=== PATIENT | male | born 1975 | race Caucasian/White ===

== ENCOUNTER 2025-01-02 06:26 | Day surgery (SDC) | payer BC, SELFPAY | END 2025-01-02 11:39 | disposition home or self-care (01) | LOC: GI 06:26 | PROVIDERS: ATTENDING PHYSICIAN Internal Medicine | DX: Z12.11 Encounter for screening for malignant neoplasm of colon (principal); K62.89 Other specified diseases of anus and rectum; K63.5 Polyp of colon; K62.1 Rectal polyp | CPT/HCPCS: 45380; 88305 ==

== ENCOUNTER 2025-07-17 01:13 | Inpatient (IN) | payer BC, SELFPAY ==
[2025-07-16 10:13] VITALS: BP 137/87
--- NOTE | 2025-07-16 10:31 | ED.GENMED ---
History of Present Illness
General
Chief Complaint: Dental Problem
Time Seen by Provider: 07/16/25 10:17
History of Present Illness
History of Present Illness:
Patient is a 49-year-old man is otherwise healthy presenting to the emergency department concerns for a dental infection. Patient states that he had his right upper and right lower wisdom teeth removed. He developed pain and swelling and was
started on Bactrim. He did finish 10 days of Bactrim today. Since then he has developed worsening swelling to the submandibular area as well as difficulty opening his jaw. No fevers. He went and saw his oral surgeon who told him to come to the
emergency department for further evaluation. I did discuss with patient oral surgeon who recommended CT scan blood work and likely IV antibiotics and possible I&D by OMFS here. Patient states he has been able to tolerate secretions. He has been
able to tolerate p.o. as well. No vision changes. No hearing changes. No tongue involvement.
Phy Exam
Physical Exam
Physical Exam:
GENERAL: in no acute distress
HEENT: normocephalic, extraocular movements intact, moist oral mucosa, trismus, swelling to the right submandibular region with associated erythema and tenderness of the right side of the jaw to the mid ear, no tongue elevation, protecting airway
NECK: normal inspection
RESPIRATORY: no respiratory distress, clear to auscultation bilaterally
CARDIOVASCULAR: regular rate and rhythm
ABDOMEN/: soft, non-distended, non-tender to palpation, no rebound or guarding
EXTREMITIES: non-tender, no edema/swelling
NEUROLOGIC: awake and alert, moves all extremities
SKIN: warm
Course
Orders/Labs/Results
Orders:
Orders
07/16/25 10:17
CT Neck With Iv Contrast Urgent
Comment:
Reason For Exam: dental infection, recent extraction
07/16/25 10:29
Ketorolac [Toradol] 15 mg IV NOW STA
07/16/25 10:42
Basic Metabolic Panel Urgent
Complete Blood Count/With Diff Urgent
07/16/25 13:58
Acetaminophen 1000MG/100Ml [Ofirmev] 1,000 mg in 100 ml IV ONCE
Acetaminophen IV Indication:: ED Narcotic Naive Pt-ONCE
07/16/25 14:05
Ampicillin/Sulbactam 3 G [Unasyn] 3 gm 0.9% Sodium Chloride 100 ml [Nss] 100 ml IV NOW
07/16/25 19:50
Ketorolac [Toradol] 15 mg IV NOW STA
07/17/25 00:24
Admit/Transfer Patient As Directed
Co-Sign Provider:
Level of Care: Inpatient admission
Assign to:: Medical/Surgical
Physician / Group: Christie
Diagnosis: dental abscess
Reason for Hospitalization: dental abscess
Expected length of stay greater than two midnights?: Yes
ELOS- Estimated Length of Stay in days: 2
I certify the patient meets the requirements for IP care: Yes
PRN Pain Medication Management As Directed
May give lesser potent ordered pain med per pt: Yes
preference::
Protocol:: Medication orders for pain may be administered in a
manner that supports deferring to patient preference
when the pt is:
- Requesting an ordered lesser potent pain medication.
Least to most potent pain medications are defined
as: acetaminophen < NSAID < tramadol < opioids
(morphine, oxycodone, hydromorphone).
- Requesting a lesser dose of the same medication IF
ORDERED.
- Requesting a less intrusive route of administration
if both routes are prescribed by the provider (PO <
IV).
07/17/25 00:25
Code Status As Directed
Resuscitation Status: Full Code
07/17/25 00:31
Oxycodone/Acetaminophen [Percocet 5/325] 1 tablet PO NOW STA
07/17/25 02:39
Acetaminophen [Tylenol] 650 mg PO Q4HPRN PRN
Bisacodyl [Dulcolax] 10 mg RECTAL [id number] PRN
Docusate W/Senna [Senokot-S] 1 tablet PO BIDPRN PRN
HYDROmorphone [Dilaudid] 0.5 mg IV Q4HPRN PRN
Ketorolac [Toradol] 15 mg IV Q6HPRN PRN
Polyethylene Glycol Powder [Miralax] 17 grams PO DAILYPRN PRN
07/17/25 02:39
Activity As Directed
Activity Level: With Assistance
Pneumatic Compression Sleeves As Directed
Type: Knee high
Vital Signs As Directed
Frequency: Per unit guidelines
DX Deep Vein Thrombosis Video Routine
07/17/25 Breakfast
Clear Liquid
At Your Request: Full Participation
07/17/25 07:09
Basic Metabolic Panel IN AM
Complete Blood Count/No Diff IN AM
Abnormal Lab Results
07/16/25
10:42
RBC 4.49 L 10^6/uL
(4.70-6.10)
Hct 38.8 L %
(39.0-52.0)
Absolute Monos (auto) 0.7 H 10^3/uL
(0.1-0.6)
Lymphocytes % 16.9 L %
(20.5-51.1)
Monocytes % 10.3 H %
(1.7-9.3)
Glucose 102 H mg/dl
(70-99)
07/16/25 10:42
07/16/25 10:42
Vital Signs
Initial and Last Documented VS:
Initial Vital Signs
Temp Pulse Resp BP Pulse Ox
98.3 F 92 16 137/87 98
07/16/25 10:13 07/16/25 10:13 07/16/25 10:13 07/16/25 10:13 07/16/25 10:13
Last Documented Vital Signs
Temp Pulse Resp BP Pulse Ox
99.1 F 75 16 117/73 100
07/17/25 07:25 07/17/25 07:25 07/17/25 07:25 07/17/25 07:25 07/17/25 07:25
MDM/Problems Addressed
Differential Diagnosis Includes:
Patient is a 49-year-old male with recent wisdom tooth extraction presenting to the emergency department the request of his facial surgeon for concern for sub mandibular infection. Vitals unremarkable exam does show significant swelling and an area
of localized swelling to the right submandibular region concerning for an abscess. Difficult to assess intraoral given trismus. Will check blood work CT scan. Will give Toradol.
*Pulse Oximetry
SaO2: 98
Oxygen Mode of Delivery: Room air
Patient hypoxic: no
*Critical Care Note
Total Time (30-74mins, 75-104mins- exclusive of procedures): Not Applicable
Update Note
Update Note:
Blood work reassuring. CT scan does show large abscess. I did discuss with OMFS here who recommended transfer to [facility] after they reviewed the images independently.
After discussion with pharmacy will start patient on IV Unasyn. He does have a rash to penicillin so the allergy was more than 20 years ago. After shared decision making patient is amenable given the new guidelines.
Patient accepted at [facility] with accepting Dr. Gonzales
Patient signed out to oncoming attending pending transfer to [facility]
ED Attending Note
-
Portions of this chart may have been created with voice recognition software.� Occasional wrong word or��sound alike� substitutions may have occurred due to the inherent limitations of voice recognition software.
Discharge Plan
Departure
Patient Disposition: Acute Care Hospital
Date of Disposition: 07/16/25
Time of Disposition: 14:19
Discharge Problem:
Abscess
Hospital Transfer
Other hospital: [facility]
I certify that the patient requires transfer: Yes
Discussed case with accepting physician: Dr Gonzales
Reason for transfer: specialties available
Interventions
Interventions:
*Risk Screen - Suicide Last Done: 07/17/25 02:31
*General Assessment Last Done: 07/16/25 21:47
*Neglect/Abuse Screening Last Done: 07/16/25 14:35
*ED- Fall Risk Assessment Last Done: 07/16/25 14:35
*ED COVID-19 Vaccine History Last Done: 07/17/25 02:31
*ED Influenza Vaccine History Last Done: 07/16/25 14:35
*Nursing Disposition Last Done: 07/17/25 02:05
Discharge Date and Time
Discharge Date/Time: 07/17/25 02:15
[2025-07-16 10:52] LABS: Hematocrit 38.8 % (39.0-52.0); Hemoglobin 13.4 g/dL (13.0-18.0); Mean Corp Hgb Conc. 34.5 g/dL (33.0-37.0); Mean Corpuscular Volume 86.4 fL (80.0-94.0); Nucleated Red Blood Cells % 0 % (-); Platelet Count 251 10^3/uL (130-400); Red Cell Dist. Width 11.9 % (11.5-14.5)
[2025-07-16] MEDS: TORADOL 15 MG IV ×2 (10:57→20:19)
[2025-07-16 11:06] LABS: Blood Urea Nitrogen 10 mg/dl (9-20); Calcium 9.5 mg/dl (8.4-10.2); Carbon Dioxide 28 mmol/L (22-30); Chloride 103 mmol/L (98-107); Glucose 102 mg/dl (70-99); Potassium 4.4 mmol/L (3.5-5.1); Sodium 135 mmol/L (135-145); eGFR > 60.00
[2025-07-16] MEDS: OFIRMEV 100 IV (14:33)
[2025-07-16 14:34] VITALS: BMI 27.5
[2025-07-16] MEDS: UNASYN IV (15:04)
[2025-07-16 15:09] VITALS: BP 131/89
[2025-07-16 16:00] VITALS: BP 99/58
[2025-07-16 17:00] VITALS: BP 109/83
[2025-07-16 18:00] VITALS: BP 120/81
[2025-07-16 19:48] VITALS: BP 127/70
--- NOTE | 2025-07-16 23:42 | ED.ADDNOTE ---
ED Addendum
ED Addendum
ED Addendum Note:
Care of patient was transition pending transfer to [facility]. Patient has dental abscess requiring IV antibiotics possible I&D. [facility] indicating that there is no bed availability currently. Will admit for antibiotics and pain control pending transfer
--- NOTE | 2025-07-17 00:16 | HPS.HSE ---
Family Physician
-
Family Physician: Ford Gutierrez
Chief Complaint
-
Oral pain
History of Present Illness
This is a 49-year-old man w/o significant past medical history presenting to the emergency department concerns for a dental infection.
He is recently status post right upper and right lower wisdom teeth extraction, developed pain and swelling and was started on Bactrim finishing a 10-day course today. He has had worsening swelling to the submandibular area and some trismus with
difficulty opening his jaw. He has not had any fevers or chills. He followed up with his oral surgeon who sent him to the Emergency Department for evaluation and recommended CT scan blood work and IV antibiotics with possible I&D by oral
maxillofacial.
Patient states he has been able to tolerate secretions. He has been able to tolerate p.o. as well. No vision changes. No hearing changes. No tongue involvement.
CT scan in the emergency department did show 3.4 cm heterogeneous soft tissue with low-attenuation density area involving the posterior right oral pharyngeal soft tissues extending to involve the anterior right tonsillar/parapharyngeal soft tissues
SUSPICIOUS FOR ABSCESS, without air bubbles within. This is located adjacent to an apparent site of dental extraction in the right mandible.
Right greater than left cervical lymph nodes suspicious for right-sided likely inflammatory lymphadenopathy.
He was started on Unasyn in the emergency department. He tolerated this antibiotic. He was seen by ENT and recommended transfer to [place]. Patient is accepted at [facility] but is pending a bed availability.
Medical History
Past Medical History
Past Medical History: Reports None
Past Surgical History: Reports None
Social History
Tobacco: Non-smoker
Alcohol: Occasional
Drug: None
Family History
Family History: Not pertinent
Allergies / Home Medications
Allergies reflects when Allergies were last updated in [facility].
Home Medications with original date entered in [facility]
Allergy/Medication List:
Allergies
Allergy/AdvReac Type Severity Reaction Status Date / Time
Penicillins Allergy Hives Verified 07/16/25 10:16
Patient does not take any medications currently
Review of Systems
-
Constitutional: Reports No Symptoms
EENT: Reports Mouth Pain
Respiratory: Reports No Symptoms
Cardiac: Reports No Symptoms
Abdomen/GI: Reports No Symptoms
: Reports No Symptoms
Musculoskeletal: Reports No Symptoms
Skin: Reports No Symptoms
Neurological: Reports No Symptoms
Endocrine: Reports No Symptoms
Hematologic/Lymphatic: Reports No Symptoms
Psych: Reports No Symptoms
Physical Exam
Vital Signs
Vital Signs
Temp Pulse Resp BP Pulse Ox
98.7 F 95 15 127/70 98
07/16/25 19:48 07/16/25 19:48 07/16/25 19:48 07/16/25 19:48 07/16/25 19:48
Physical Exam
General: Well Developed, Well Nourished and No Apparent Distress
HEENT: NormoCephalic, Moist mucous membranes and Atraumatic
Respiratory: Clear
Cardiac: S1/S2 and Regular Rhythm; No Murmur or Rub
GI: Soft, Non Tender, Non Distended and Normal Bowel Sounds; No Organomegaly
Rectal: Deferred by Provider
Musculoskeletal: No Clubbing, No Cyanosis and No Edema
Skin: No Rash
Neuro: Nonfocal/grossly intact
Laboratory Results
-
07/16/25 10:42
07/16/25 10:42
Data Reviewed
-
CT Scan: Report Reviewed by me
Lab Data: Labs Reviewed by me
Old Records: Reviewed
Impression/Plan
-
IMPRESSION:
49-year-old with dental abscess status post tooth extraction with completion of Bactrim and persistent pain and swelling, no fevers chills no leukocytosis. CT scan shows soft tissue with low-attenuation density area involving the posterior right
oral pharyngeal soft tissues extending to involve the anterior right tonsillar/parapharyngeal soft tissue suspicious for an abscess. Recommended drainage by oral maxillofacial and patient is planning transfer to [place].
PLAN:
Dental abscess
- Admit to [facility] while waiting for transfer
- Continue IV Unasyn, tolerated initial dose in ED
- clear liquid diet
- Pain control
DVT prophylaxis with SCDs for now
CODE STATUS�full code
[2025-07-17 01:04] VITALS: BP 139/79
[2025-07-17] MEDS: PERCOCET 5/325 1 TABLET PO (01:04)
[2025-07-17] MEDS: UNASYN IV ×4 (02:09→19:01)
[2025-07-17 02:28] VITALS: BP 124/80; BMI 27.0
--- NOTE | 2025-07-17 03:17 | PTCARENOTE ---
received pt from ED. pt ambulated from stretcher to bed. pt A&O x 3. pt offers no current complaints and appears comfortable in bed. call mcneal within reach. plan of care ongoing.
[2025-07-17] MEDS: TORADOL 15 MG IV ×3 (06:39→19:32)
[2025-07-17 07:25] VITALS: BP 117/73
[2025-07-17 07:42] LABS: Hematocrit 38.4 % (39.0-52.0); Hemoglobin 13.0 g/dL (13.0-18.0); Mean Corp Hgb Conc. 33.9 g/dL (33.0-37.0); Mean Corpuscular Volume 89.5 fL (80.0-94.0); Platelet Count 241 10^3/uL (130-400); Red Cell Dist. Width 11.9 % (11.5-14.5)
[2025-07-17 08:20] LABS: Blood Urea Nitrogen 9 mg/dl (9-20); Calcium 8.9 mg/dl (8.4-10.2); Carbon Dioxide 29 mmol/L (22-30); Chloride 101 mmol/L (98-107); Estimated Creatinine Clearance 84 ml/min; Glucose 107 mg/dl (70-99); Potassium 4.4 mmol/L (3.5-5.1); Sodium 136 mmol/L (135-145); eGFR > 60.00
--- NOTE | 2025-07-17 10:39 | W.PN.UPDATE ---
Update Note
Progress Note Update
Admitted after midnight with abscess after dental extraction
CT showed Approximate 3.4 cm heterogeneous soft tissue with low-attenuation density area involving the posterior right oral pharyngeal soft tissues extending to involve the anterior right tonsillar/parapharyngeal soft tissues SUSPICIOUS FOR ABSCESS,
without air bubbles within. This is located adjacent to an apparent site of dental extraction in the right mandible.
Assessment:
right tonsillar/parapharyngeal abscess
- [facility] recommended transfer to [facility]; pending a bed (accepting physician is Dr. Angelita Gonzales) - forms all completed
- at present, continue IV Unasyn, pain control
- diet: Full liquids for now
DVT ppx: SCDs
Code: Full
[2025-07-17 15:31] VITALS: BP 143/90
--- NOTE | 2025-07-17 16:09 | PTCARENOTE ---
pt to be transferred to [facility] at 1930. Report given to TAYLOR Henning at 1600 ph no- [phone].
--- NOTE | 2025-07-17 16:16 | CM ---
IA completed. Pt is independent in ADLs and IADLs. LIves with his and 4 children in a 2 story home with no step at the entrance and 13 steps inside the home. The full BR is on the second floor. No hx of DME, home O2, HH or snf. No insecurities
identified. Confirmed PCP, Rx, insurance and drug coverage.
PCP: Ford Gutierrez
RX: [facility]
Pain management ongoing. Pt is scheduled to be transferred to [facility] for surgery on his dental abscess.
Plan: transfer to [facility]
--- NOTE | 2025-07-17 17:31 | W.DCSUMMARY ---
Discharge Summary
Discharge Data
Date of Admission: 07/17/25
Date of Discharge: 07/17/25
-
Pending Results: No
Hospital Course
49 y/o M admitted 07/17 with pain and swelling of jaw/face. He underwent recent R upper and R lower wisdom teeth extraction. He completed 10 days of Bactrim. He returned with worsening swelling to the submandibular area and some trismus with
difficulty opening his jaw. No fever/chills. He was sent to ER by his oral surgeon. CT in ER showed 3.4 cm heterogeneous soft tissue with low-attenuation density area involving the posterior right oral pharyngeal soft tissues extending to involve
the anterior right tonsillar/parapharyngeal soft tissues SUSPICIOUS FOR ABSCESS, without air bubbles within. OMFS recommended transfer to [place] (accepting doctor is Dr. Angelita Gonzales). Patient was placed on IV Unasyn. All paperwork for transfer was
completed. Patient was transferred to [facility].
Discharge Plan
-
Patient Disposition: Acute Care Hospital
Referrals:
Ford Gutierrez MD [Family Provider, Family Practice]
Discharge Date and Time
Print Language: KAZAKH
[2025-07-17 19:37] VITALS: BP 127/78
--- NOTE | 2025-07-17 20:07 | PTCARENOTE ---
pt discharged via EMS to [facility], report given to EMS. Brad Shaffer gave report to Milady VAZQUEZ at [facility]. pt belongings taken with patient. IV in place due to hospital to hospital transfer.
== END 2025-07-17 20:13 | disposition short-term general hospital (02) | DRG 158 ==
LOC: 4 EAST ACU 01:13
PROVIDERS: ADMITTING PHYSICIAN Internal Medicine; ATTENDING PHYSICIAN Internal Medicine; EMERGENCY PHYSICIAN Student in an Organized Health Care Education/Training Program; FAMILY PHYSICIAN Family Medicine
DX: K04.7 Periapical abscess without sinus (principal); J39.0 Retropharyngeal and parapharyngeal abscess; Z75.1 Person awaiting admission to adequate facility elsewhere
CPT/HCPCS: 70491; 80048; 85025; 85027; 96374; 99285; Q9967